=== PATIENT | male | born 2000 | race Caucasian/White ===

== ENCOUNTER 2022-01-18 18:46 | Inpatient (IN) ==
[2022-01-18] MEDS ORDERED: SODIUM CHLORIDE 0.9% 1000ML 2,000 ML IV ONE (19:14)
[2022-01-18 19:23] LABS: Appearance Urine Clear (Clear); Bacteria Urine Automated Negative (Negative); Bilirubin Urine Negative (Negative); Blood Urine 3+ (Negative); Cast Urine Automated 0 /lpf (0-5); Color Urine Orange; Epithelial Cell Urine Auto 0-5 /lpf (0-5); Glucose Urine UA Negative (Negative); Ketones Urine Negative (Negative); Leukocyte Esterase Urine Trace (Negative); Nitrite Urine Negative (Negative); Protein Urine 2+ (Negative); RBC Urine Automated 0-4 /hpf (0-4); Specific Gravity Urine 1.014 (1.000-1.030); Urobilinogen Urine Negative (Negative); pH Urine 6.5 (4.5-7.5)
[2022-01-18 19:39] LABS: Basophils # (auto) 0.02 K/uL (0-0.2); Basophils % (auto) 0.2 %; Eosinophils # (auto) 0.12 K/uL (0-0.50); Eosinophils % (auto) 1.4 %; Hematocrit (blood only) 50.3 % (40.1-51.0); Hemoglobin 16.9 g/dl (14.0-18.0); Immature Granulocytes # (auto) 0.02 K/uL (0.00-0.02); Immature Granulocytes % (auto) 0.2 %; Lymphocytes # (auto) 3.07 K/uL (1.2-3.4); Lymphocytes % (auto) 35.8 %; Mean Corpuscular Hemoglobin 28.2 pg (25.0-34.0); Mean Corpuscular Hgb Conc 33.6 g/dL (32.0-36.0); Mean Corpuscular Volume 83.8 fL (80.0-100.0); Mean Platelet Volume 10.4 fL (9.4-12.4); Monocytes # (auto) 0.58 K/uL (0.24-0.82); Monocytes % (auto) 6.8 %; Neutrophils # (auto) 4.76 K/uL (1.4-6.5); Neutrophils % (auto) 55.6 %; Platelet Count 274 K/uL (130-400); RDW Coefficient of Variation 12.8 % (11.5-14.5); RDW Standard Deviation 38.6 fL (36.4-46.3); White Blood Count 8.57 K/ul (4.8-10.8)
--- NOTE | 2022-01-18 19:42 | Emergency Department Note ---
Impression & Plan Rhabdomyolysis, Transaminitis, Hepatic steatosis ED Provider Note NAME: SHADIA HERRERA AGE: 21 SEX: M : 2000 ARRIVES VIA: Walk-In INFORMANT: Patient ED PROVIDER(S): Jalen Roman DO CHIEF COMPLAINT: dark urine, leg and back pain HPI: Patient is a 21-year-old male who presents to the ER for dark urine. He notes he worked out very hard on Wednesday and did way more than what he normally does. Since then he has been very sore in the legs. Yesterday he did start to have some left lower back pain as well. He has no pain at this time in the back but the legs are worse when he sits for a while or when he stands for a while. He notes the urine has slightly cleared up. No headache or change in vision. No chest pain or shortness of breath. No nausea, vomiting, or diarrhea. No dysuria, urgency, or frequency. No other exacerbating or remitting factors. He also notes he has not been urinating as much as usual. ROS: See above HPI for pertinent positives & negatives. A total of 10 systems reviewed and were otherwise negative. PAST MEDICAL HISTORY:See Below PAST SURGICAL HISTORY:See Below FAMILY HISTORY:See Below SOCIAL HISTORY:See Below HOME MEDICATIONS:See Below ALLERGIES:See Below VITALS:See Below PHYSICAL EXAMINATION: GENERAL: Sitting up in bed, alert, well appearing, well nourished, no distress, non-toxic EYE EXAM: normal conjunctiva. OROPHARYNX: mucous membranes are moist LUNGS: Clear to auscultation. Normal chest wall mechanics HEART: no murmurs, S1 normal and S2 normal ABDOMEN: abdomen soft, non-tender, normo-active bowel sounds, no masses, no rebound or guarding. BACK: Back is symmetrical on inspection and there is no deformity, no midline tenderness, no CVA tenderness. SKIN: no rashes and no bruising UPPER EXTREMITIES: upper extremities are grossly normal. LOWER EXTREMITIES: No pitting edema. NEURO EXAM: Normal sensorium, cranial nerves II-XII grossly intact, normal speech, no gross weakness of arms, no gross weakness of legs. MEDICAL DECISION MAKING: Patient is a 21-year-old male who presents ER for dark urine and bilateral leg pain after working out weight harder than what he typically does this past Wednesday. IV was established blood work is obtained. Labs show no significant leukocytosis or anemia. BMP was unremarkable. T bili up at 1.3 with an AST of 1114 and ALT of 281. Total CK was 45,000. Lipase was normal. UA with blood and protein. COVID was negative. Patient was given 2 L normal saline as well as 2 additional liters of Normosol. He was updated at bedside. CT abdomen pelvis was unremarkable. He was discussed with Dr. Lynne Drummond and admitted for further work-up. Triage Nursing notes reviewed. Limited review of prior medical records performed Vital Signs: reviewed and remarkable for HTN and tachy Differential diagnosis: Differential diagnoses includes but is not limited to gastritis, peptic ulcer disease, GERD, gallbladder disease, pancreatitis, small bowel obstruction, acute coronary syndrome, pericarditis, ischemic bowel, irritable bowel disease, irritable bowel syndrome, appendicitis, diverticulitis, malignancy, hernia, urinary tract infection, torsion, perforation, trauma, infectious. ER treatment provided: See below Diagnostics interpreted by me: ECG: none Cardiac Monitoring: An order was placed for continuous cardiac monitoring. The monitor shows a rate of 90 with sinus rhythm. Laboratory studies: As stated above and show below. Imaging studies: CT abdomen pelvis was unremarkable Consultation(s): Discussed with Dr. Lynne Drummond for further evaluation Procedures: none Critical Care: None Past Med/Surg History Medical History (Updated 01/18/22 @ 22:07 by Dee Drummond DO) No significant past medical history Surgical History (Updated 01/18/22 @ 22:05 by Dee Drummond DO) No significant past surgical history Family History (Updated 01/18/22 @ 22:05 by Dee Drummond DO) Other Diabetes Social History (Updated 01/18/22 @ 22:05 by Dee Drummond DO) Smoking Status: Never smoker Hx Alcohol Use: No Hx Substance Use: No Feels Safe at Home: Yes Allergies Allergies Allergy/AdvReac Type Severity Reaction Status Date / Time No Known Allergies Allergy Unverified 01/18/22 22:04 Home Meds Home Medications Medication Instructions Recorded Confirmed No Known Home Medications 01/18/22 01/18/22 Results & Data (ED) Vital Signs Vital Signs - 24 hr 01/18/22 18:50 01/18/22 20:41 Temperature 36.5 C Temperature Source Temporal Artery Scan Pulse Rate 98 H Respiratory Rate 20 Respiratory Effort / Characteristics Non-Labored Spontaneous Respiratory Depth Normal Respiratory Pattern Regular Blood Pressure 149/108 H Blood Pressure [Right Arm] 135/78 Blood Pressure Mean 121 Blood Pressure Mean [Right Arm] 97 Pulse Oximetry 97 Oxygen Delivery Method Room Air Sepsis Recent Fever Within 48 Hours No Sepsis New/Unexplained Change in Mental Status No Sepsis Action Taken by Nursing No Action Required Laboratory Data Result diagrams: 01/18/22 19:08 01/18/22 19:08 Lab Results 01/18/22 01/18/22 01/18/22 Range/Units 19:07 19:08 19:08 WBC 8.57 (4.8-10.8) K/ul RBC 6.00 (4.63-6.08) M/uL Hgb 16.9 (14.0-18.0) g/dl Hct 50.3 (40.1-51.0) % MCV 83.8 (80.0-100.0) fL MCH 28.2 (25.0-34.0) pg MCHC 33.6 (32.0-36.0) g/dL RDW Std Deviation 38.6 (36.4-46.3) fL RDW Coeff of Rigoberto 12.8 (11.5-14.5) % Plt Count 274 (130-400) K/uL MPV 10.4 (9.4-12.4) fL Immature Gran % (Auto) 0.2 % Neut % (Auto) 55.6 % Lymph % (Auto) 35.8 % [place] % (Auto) 6.8 % Eos % (Auto) 1.4 % Baso % (Auto) 0.2 % Neut # (Auto) 4.76 (1.4-6.5) K/uL Lymph # (Auto) 3.07 (1.2-3.4) K/uL [place] # (Auto) 0.58 (0.24-0.82) K/uL Eos # (Auto) 0.12 (0-0.50) K/uL Baso # (Auto) 0.02 (0-0.2) K/uL Immature Gran # (Auto) 0.02 (0.00-0.02) K/uL Sodium 140 (136-145) mmol/L Potassium 3.9 (3.5-5.1) mmol/L Chloride 102 (98-107) mmol/L Carbon Dioxide 32 (21-32) mmol/L Anion Gap 6 (3-11) BUN 12 (6-23) mg/dl Creatinine 1.20 (0.6-1.4) mg/dl Est Cr Clr Drug Dosing 100.3 ml/min Est GFR ( Amer) 99.6 ml/min Est GFR (Non-Af Amer) 85.9 ml/min BUN/Creatinine Ratio 10.0 (10-20) Glucose 106 H (70-99(Fasting)) mg/dl Calcium 9.8 (8.5-10.1) mg/dl Total Bilirubin 1.3 H (0.2-1.0) mg/dl AST 1392 H (13-39) U/L ALT 281 H (7-52) U/L Alkaline Phosphatase 55 (34-104) U/L Total Creatine Kinase 63242 H (30-223) U/L Total Protein 8.3 (6.0-8.3) gm/dl Albumin 4.9 (3.4-5.0) gm/dl Globulin 3.4 (2.5-4.0) gm/dl Albumin/Globulin Ratio 1.4 (0.9-2) Lipase 22 (11-82) U/L Urine Color [place] Urine Appearance Clear (Clear) Urine pH 6.5 (4.5-7.5) Ur Specific [place] 1.014 (1.000-1.030) Urine Protein 2+ H (Negative) Urine Glucose (UA) Negative (Negative) Urine Ketones Negative (Negative) Urine Blood 3+ H (Negative) Urine Nitrite Negative (Negative) Urine Bilirubin Negative (Negative) Urine Urobilinogen Negative (Negative) Ur Leukocyte Esterase Trace H (Negative) Urine WBC (Auto) 1-5 (0-5) /hpf Urine RBC (Auto) 0-4 (0-4) /hpf U Hyaline Cast (Auto) 0 (0-5) /lpf U Epithel Cells (Auto) 0-5 (0-5) /lpf Urine Bacteria (Auto) Negative (Negative) SARS-CoV-2, RNA, NAAT (NEGATIVE) 01/18/22 Range/Units 21:36 WBC (4.8-10.8) K/ul RBC (4.63-6.08) M/uL Hgb (14.0-18.0) g/dl Hct (40.1-51.0) % MCV (80.0-100.0) fL MCH (25.0-34.0) pg MCHC (32.0-36.0) g/dL RDW Std Deviation (36.4-46.3) fL RDW Coeff of Rigoberto (11.5-14.5) % Plt Count (130-400) K/uL MPV (9.4-12.4) fL Immature Gran % (Auto) % Neut % (Auto) % Lymph % (Auto) % [place] % (Auto) % Eos % (Auto) % Baso % (Auto) % Neut # (Auto) (1.4-6.5) K/uL Lymph # (Auto) (1.2-3.4) K/uL [place] # (Auto) (0.24-0.82) K/uL Eos # (Auto) (0-0.50) K/uL Baso # (Auto) (0-0.2) K/uL Immature Gran # (Auto) (0.00-0.02) K/uL Sodium (136-145) mmol/L Potassium (3.5-5.1) mmol/L Chloride (98-107) mmol/L Carbon Dioxide (21-32) mmol/L Anion Gap (3-11) BUN (6-23) mg/dl Creatinine (0.6-1.4) mg/dl Est Cr Clr Drug Dosing ml/min Est GFR ( Amer) ml/min Est GFR (Non-Af Amer) ml/min BUN/Creatinine Ratio (10-20) Glucose (70-99(Fasting)) mg/dl Calcium (8.5-10.1) mg/dl Total Bilirubin (0.2-1.0) mg/dl AST (13-39) U/L ALT (7-52) U/L Alkaline Phosphatase (34-104) U/L Total Creatine Kinase (30-223) U/L Total Protein (6.0-8.3) gm/dl Albumin (3.4-5.0) gm/dl Globulin (2.5-4.0) gm/dl Albumin/Globulin Ratio (0.9-2) Lipase (11-82) U/L Urine Color Urine Appearance (Clear) Urine pH (4.5-7.5) Ur Specific [place] (1.000-1.030) Urine Protein (Negative) Urine Glucose (UA) (Negative) Urine Ketones (Negative) Urine Blood (Negative) Urine Nitrite (Negative) Urine Bilirubin (Negative) Urine Urobilinogen (Negative) Ur Leukocyte Esterase (Negative) Urine WBC (Auto) (0-5) /hpf Urine RBC (Auto) (0-4) /hpf U Hyaline Cast (Auto) (0-5) /lpf U Epithel Cells (Auto) (0-5) /lpf Urine Bacteria (Auto) (Negative) SARS-CoV-2, RNA, NAAT NEGATIVE (NEGATIVE) Administered Medications Discontinued Medications Sodium Chloride (Nss 1000ml) 2,000 mls @ 999 mls/hr IV .Q2H1M ONE Stop: 01/18/22 21:14 Last Infusion: 01/18/22 21:24 Dose: 0 mls/hr Documented By: Admin: 01/18/22 19:32 Dose: 999 mls/hr Documented By: SENDY Parenteral Electrolytes (Normosol-R) 1,000 mls @ 999 mls/hr IV .Q1H1M ONE Stop: 01/18/22 21:38 Last Admin: 01/18/22 21:23 Dose: 999 mls/hr Documented By: SENDY Imaging Data Radiologist's Impression: Abdomen/Pelvis CT 01/18/22 19:26 CT SCAN OF THE ABDOMEN AND PELVIS WITHOUT IV CONTRAST CLINICAL HISTORY: Left flank pain. COMPARISON STUDY: No priors. TECHNIQUE: CT scan of the abdomen and pelvis is performed from the lung bases to the proximal femora. Images are reviewed in the axial, sagittal, and coronal planes. IV contrast was not administered for this examination. A dose lowering technique was utilized adhering to the principles of ALARA. CT DOSE: 382.18 mGy.cm FINDINGS: Lung bases: The heart is normal in size and without pericardial effusion. The lung bases are clear. Liver: The unenhanced liver is normal in size and demonstrates diffusely diminished attenuation indicating steatosis. Fatty sparing is seen adjacent to the gallbladder fossa. There is no intrahepatic biliary ductal dilatation. Gallbladder: Unremarkable. Spleen: Normal in size and attenuation. Pancreas: Unremarkable. Adrenal glands: Unremarkable. Kidneys: The unenhanced kidneys are normal in size and without hydronephrosis. There are no renal calculi identified. There is no evidence of contour deforming renal mass lesion. Abdominal vasculature: The abdominal aorta is normal in course and caliber. Bowel: There is mild to moderate colonic fecal retention. No bowel obstruction is seen. The appendix is well-visualized and normal. Peritoneum: There is no intraperitoneal free air or abdominal ascites. Lymphadenopathy: None. Pelvic viscera: The bladder, prostate, and seminal vesicles are normal as visualized. Skeletal structures: No lytic or blastic lesions are seen. IMPRESSION: 1. No acute infectious or inflammatory findings are identified in the abdomen or pelvis. 2. Hepatic steatosis. ACT 112: Negative or not required by law. Electronically signed by: Mekhi Cisneros M.D. 01/18/2022 8:25 PM Discharge Plan Visit Data Chief Complaint: Urinary Symptoms Stated Complaint: DARK URINE, LOWER BACK/KINDEY PAIN ED Provider: Jalen Roman Discharge Problem: Rhabdomyolysis, Transaminitis, Hepatic steatosis Forms Stand Alone Forms: My [employer] Prescriptions Prescriptions: No Action No Known Home Medications Referrals Referrals: PCP,NO [Primary Care Provider] -
[2022-01-18 20:05] LABS: Calcium 9.8 mg/dl (8.5-10.1); Creatinine Clr Calc Pharmacy 100.3 ml/min; Est GFR (African American) 99.6 ml/min; Est GFR (Non-African American) 85.9 ml/min; Potassium 3.9 mmol/L (3.5-5.1)
--- NOTE | 2022-01-18 20:27 | CT Scan Report ---
CT SCAN OF THE ABDOMEN AND PELVIS WITHOUT IV CONTRAST CLINICAL HISTORY: Left flank pain. COMPARISON STUDY: No priors. TECHNIQUE: CT scan of the abdomen and pelvis is performed from the lung bases to the proximal femora. Images are reviewed in the axial, sagittal, and coronal planes. IV contrast was not administered for this examination. A dose lowering technique was utilized adhering to the principles of ALARA. CT DOSE: 382.18 mGy.cm FINDINGS: Lung bases: The heart is normal in size and without pericardial effusion. The lung bases are clear. Liver: The unenhanced liver is normal in size and demonstrates diffusely diminished attenuation indic ating steatosis. Fatty sparing is seen adjacent to the gallbladder fossa. There is no intrahepatic bi liary ductal dilatation. Gallbladder: Unremarkable. Spleen: Normal in size and attenuation. Pancreas: Unremarkable. Adrenal glands: Unremarkable. Kidneys: The unenhanced kidneys are normal in size and without hydronephrosis. There are no renal moe culi identified. There is no evidence of contour deforming renal mass lesion. Abdominal vasculature: The abdominal aorta is normal in course and caliber. Bowel: There is mild to moderate colonic fecal retention. No bowel obstruction is seen. The appendix is well-visualized and normal. Peritoneum: There is no intraperitoneal free air or abdominal ascites. Lymphadenopathy: None. Pelvic viscera: The bladder, prostate, and seminal vesicles are normal as visualized. Skeletal structures: No lytic or blastic lesions are seen. IMPRESSION: 1. No acute infectious or inflammatory findings are identified in the abdomen or pelvis. 2. Hepatic steatosis. ACT 112: Negative or not required by law. Electronically signed by: Mekhi Cisneros M.D. 01/18/2022 8:25 PM
[2022-01-18 20:28] LABS: Albumin Globulin Ratio 1.4 (0.9-2); Albumin Level 4.9 gm/dl (3.4-5.0); Bilirubin,Total 1.3 mg/dl (0.2-1.0); Globulin 3.4 gm/dl (2.5-4.0); Total Protein 8.3 gm/dl (6.0-8.3)
[2022-01-18] MEDS ORDERED: NORMOSOL-R 1,000 ML IV ONE ×2 (20:38→22:12)
--- NOTE | 2022-01-18 21:21 | History & Physical Report ---
Date of Service January 18, 2022 Assessment & Plan (1) Rhabdomyolysis: Plan: 21yo male with no significant past medical or surgical history presenting with exertional rhabdomyolysis. Patient reports doing a strenuous leg workout two days ago. He has had muscle soreness then dark urine today. He is afebrile, HD stable. No evidence of compartment syndrome [place] exam[place] [address], ZGA=6198 and CIT=017, could be consistent with patient's rhabdomyolysis. Renal function is intact -Admit to medical -Check Mg and PO4 x 1 -Continue IVF resuscitation - LR at 150mL/hr x 3 liters -Repeat chemistry, CBC, LFTs and CK in AM -Tylenol as needed for pain (2) Hepatic steatosis: Plan: Noted on imaging -Repeat LFTs in AM -Will send HgbA1C and Lipid panel to help optimize risk factors for NAFLD -Briefly discussed lifestyle modification - encouraged patient to continue exercising, eating healthy. He does not smoke or drink. F/E/N - LR at 150mL/hr, monitor electrolytes, regular diet Ppx - Low risk for DVT Code - Full Dispo - Admit to medical History of Present Illness Chief Complaint: rhabdomyolysis Primary Care Provider: NO PCP Grayson Savage is a pleasant 21yo male with no significant past medical or surgical history presenting with acute exertional rhabdomyolysis. Patient was working out in his home two days ago. He did a lot of leg lifts and squats. Yesterday he had muscle pain in his anterior and lateral thighs. Today he noted some dark urine. He tried to drink a lot of fluid to lighten his urine but continue to pass dark colored urine which is why he came to the ER. He has no additional complaints. Denies chest pain, cough, SOB, fever, chills, nausea, vomiting, diarrhea or constipation. He takes no medications or over the counter supplements. No prior history of rhabdomyolysis. In the ER patient is afebrile, HD stable, NAD. ER Course: 2L NSS, 1L Plasmalyte Allergies Allergy/AdvReac Type Severity Reaction Status Date / Time No Known Allergies Allergy Unverified 01/18/22 22:04 Home Medications Medication Instructions Recorded Confirmed Type No Known Home Medications 01/18/22 01/18/22 History Past Med/Surg History Medical History (Updated 01/18/22 @ 22:07 by Dee Drummond DO) No significant past medical history Surgical History (Updated 01/18/22 @ 22:05 by Dee Drummond DO) No significant past surgical history Family History (Updated 01/18/22 @ 22:05 by Dee Drummond DO) Other Diabetes Social History (Updated 01/18/22 @ 22:05 by Dee Drummond DO) Smoking Status: Never smoker Hx Alcohol Use: No Hx Substance Use: No Feels Safe at Home: Yes Review of Systems Review of Systems: All systems reviewed & are unremarkable except as noted in HPI & below Physical Exam Physical Exam: General: patient resting comfortably, NAD, non-toxic in appearance, AA&O x 4 Skin: warm, dry, intact, no rashes or lesions HEENT: NC/AT, PERRL, EOMI, anicteric sclera, conjunctiva without injection, external ear normal to inspection and nontender, nares patent, moist mucus membranes, dentition intact, no oropharyngeal lesions, neck supple, trachea midline, no LAD, no thyromegaly, no JVD Heart: +S1/S2, regular, no m/r/g Lungs: equal air entry bilaterally, no rales/rhonchi/wheezes Abd: +BS, soft, NT/ND, no masses/organomegaly/ascites Ext: warm, 2+ pulses in UE/LE bilaterally, no clubbing/cyanosis or edema, muscle compartments are soft, tender to palpation Neuro: nonfocal, patient AA&O x 4, speech intact, no facial droop, moving all extremities on command with equal strength 5/5 Results & Data Results & Data ([facility]) Vital Signs (Past 12 Hours) Vital Signs Temp Pulse Resp BP BP Pulse Ox O2 Del Method 01/18/22 20:41 135/78 01/18/22 18:50 36.5 C 98 H 20 149/108 H 97 Room Air Laboratory Results Laboratory Results WBC 8.57 K/ul (4.8-10.8) 01/18/22 19:08 RBC 6.00 M/uL (4.63-6.08) 01/18/22 19:08 Hgb 16.9 g/dl (14.0-18.0) 01/18/22 19:08 Hct 50.3 % (40.1-51.0) 01/18/22 19:08 MCV 83.8 fL (80.0-100.0) 01/18/22 19:08 MCH 28.2 pg (25.0-34.0) 01/18/22 19:08 MCHC 33.6 g/dL (32.0-36.0) 01/18/22 19:08 RDW Std Deviation 38.6 fL (36.4-46.3) 01/18/22 19:08 RDW Coeff of Rigoberto 12.8 % (11.5-14.5) 01/18/22 19:08 Plt Count 274 K/uL (130-400) 01/18/22 19:08 MPV 10.4 fL (9.4-12.4) 01/18/22 19:08 Immature Gran % (Auto) 0.2 % 01/18/22 19:08 Neut % (Auto) 55.6 % 01/18/22 19:08 Lymph % (Auto) 35.8 % 01/18/22 19:08 [place] % (Auto) 6.8 % 01/18/22 19:08 Eos % (Auto) 1.4 % 01/18/22 19:08 Baso % (Auto) 0.2 % 01/18/22 19:08 Neut # (Auto) 4.76 K/uL (1.4-6.5) 01/18/22 19:08 Lymph # (Auto) 3.07 K/uL (1.2-3.4) 01/18/22 19:08 [place] # (Auto) 0.58 K/uL (0.24-0.82) 01/18/22 19:08 Eos # (Auto) 0.12 K/uL (0-0.50) 01/18/22 19:08 Baso # (Auto) 0.02 K/uL (0-0.2) 01/18/22 19:08 Immature Gran # (Auto) 0.02 K/uL (0.00-0.02) 01/18/22 19:08 Sodium 140 mmol/L (136-145) 01/18/22 19:08 Potassium 3.9 mmol/L (3.5-5.1) 01/18/22 19:08 Chloride 102 mmol/L (98-107) 01/18/22 19:08 Carbon Dioxide 32 mmol/L (21-32) 01/18/22 19:08 Anion Gap 6 (3-11) 01/18/22 19:08 BUN 12 mg/dl (6-23) 01/18/22 19:08 Creatinine 1.20 mg/dl (0.6-1.4) 01/18/22 19:08 Est Cr Clr Drug Dosing 100.3 ml/min 01/18/22 19:08 Est GFR ( Amer) 99.6 ml/min 01/18/22 19:08 Est GFR (Non-Af Amer) 85.9 ml/min 01/18/22 19:08 BUN/Creatinine Ratio 10.0 (10-20) 01/18/22 19:08 Glucose 106 mg/dl (70-99(Fasting)) H 01/18/22 19:08 Calcium 9.8 mg/dl (8.5-10.1) 01/18/22 19:08 Total Bilirubin 1.3 mg/dl (0.2-1.0) H 01/18/22 19:08 AST 1392 U/L (13-39) H 01/18/22 19:08 ALT 281 U/L (7-52) H 01/18/22 19:08 Alkaline Phosphatase 55 U/L (34-104) 01/18/22 19:08 Total Creatine Kinase 04566 U/L (30-223) H 01/18/22 19:08 Total Protein 8.3 gm/dl (6.0-8.3) 01/18/22 19:08 Albumin 4.9 gm/dl (3.4-5.0) 01/18/22 19:08 Globulin 3.4 gm/dl (2.5-4.0) 01/18/22 19:08 Albumin/Globulin Ratio 1.4 (0.9-2) 01/18/22 19:08 Lipase 22 U/L (11-82) 01/18/22 19:08 Urine Color Hand 01/18/22 19:07 Urine Appearance Clear (Clear) 01/18/22 19:07 Urine pH 6.5 (4.5-7.5) 01/18/22 19:07 Ur Specific [place] 1.014 (1.000-1.030) 01/18/22 19:07 Urine Protein 2+ (Negative) H 01/18/22 19:07 Urine Glucose (UA) Negative (Negative) 01/18/22 19:07 Urine Ketones Negative (Negative) 01/18/22 19:07 Urine Blood 3+ (Negative) H 01/18/22 19:07 Urine Nitrite Negative (Negative) 01/18/22 19:07 Urine Bilirubin Negative (Negative) 01/18/22 19:07 Urine Urobilinogen Negative (Negative) 01/18/22 19:07 Ur Leukocyte Esterase Trace (Negative) H 01/18/22 19:07 Urine WBC (Auto) 1-5 /hpf (0-5) 01/18/22 19:07 Urine RBC (Auto) 0-4 /hpf (0-4) 01/18/22 19:07 U Hyaline Cast (Auto) 0 /lpf (0-5) 01/18/22 19:07 U Epithel Cells (Auto) 0-5 /lpf (0-5) 01/18/22 19:07 Urine Bacteria (Auto) Negative (Negative) 01/18/22 19:07 SARS-CoV-2, RNA, NAAT NEGATIVE (NEGATIVE) 01/18/22 21:36 Impressions Abdomen/Pelvis CT 01/18/22 19:26 CT SCAN OF THE ABDOMEN AND PELVIS WITHOUT IV CONTRAST CLINICAL HISTORY: Left flank pain. COMPARISON STUDY: No priors. TECHNIQUE: CT scan of the abdomen and pelvis is performed from the lung bases to the proximal femora. Images are reviewed in the axial, sagittal, and coronal planes. IV contrast was not administered for this examination. A dose lowering technique was utilized adhering to the principles of ALARA. CT DOSE: 382.18 mGy.cm FINDINGS: Lung bases: The heart is normal in size and without pericardial effusion. The lung bases are clear. Liver: The unenhanced liver is normal in size and demonstrates diffusely diminished attenuation indicating steatosis. Fatty sparing is seen adjacent to the gallbladder fossa. There is no intrahepatic biliary ductal dilatation. Gallbladder: Unremarkable. Spleen: Normal in size and attenuation. Pancreas: Unremarkable. Adrenal glands: Unremarkable. Kidneys: The unenhanced kidneys are normal in size and without hydronephrosis. There are no renal calculi identified. There is no evidence of contour deforming renal mass lesion. Abdominal vasculature: The abdominal aorta is normal in course and caliber. Bowel: There is mild to moderate colonic fecal retention. No bowel obstruction is seen. The appendix is well-visualized and normal. Peritoneum: There is no intraperitoneal free air or abdominal ascites. Lymphadenopathy: None. Pelvic viscera: The bladder, prostate, and seminal vesicles are normal as visualized. Skeletal structures: No lytic or blastic lesions are seen. IMPRESSION: 1. No acute infectious or inflammatory findings are identified in the abdomen or pelvis. 2. Hepatic steatosis. ACT 112: Negative or not required by law. Electronically signed by: Mekhi Cisneros M.D. 01/18/2022 8:25 PM PG Care Time/CCT Total # of Minutes Spent Total Time Spent with Patient: Total time spent is greater than 50% in coordination of care (as documented) at patient's floor/unit and/or counseling patient: Coding Level of Care Code 42323 Initial Inpt Care Lvl 2 Diagnoses Rhabdomyolysis M62.82 Hepatic steatosis K76.0
[2022-01-18] MEDS ORDERED: ACETAMINOPHEN 325 MG TAB PO PRN (22:44)
[2022-01-18 23:03] LABS: Magnesium 2.4 mg/dl (1.7-2.4); Phosphorus 3.5 mg/dl (2.5-4.9)
[2022-01-19] MEDS: LACTATED RINGER'S 1,000 ML IV SCH ×3 (00:15→12:26)
[2022-01-19 06:20] LABS: Hematocrit (blood only) 44.7 % (40.1-51.0); Hemoglobin 15.2 g/dl (14.0-18.0); Mean Corpuscular Hemoglobin 28.5 pg (25.0-34.0); Mean Corpuscular Volume 83.9 fL (80.0-100.0); Mean Platelet Volume 10.4 fL (9.4-12.4); Platelet Count 232 K/uL (130-400); RDW Coefficient of Variation 13.1 % (11.5-14.5); RDW Standard Deviation 39.8 fL (36.4-46.3); Red Blood Count 5.33 M/uL (4.63-6.08); White Blood Count 7.28 K/ul (4.8-10.8)
[2022-01-19 06:46] LABS: BUN Creatinine Ratio 8.8 (10-20); Calcium 9.1 mg/dl (8.5-10.1); Creatinine Clr Calc Pharmacy 133.2 ml/min; Est GFR (African American) 139.1 ml/min; Potassium 4.3 mmol/L (3.5-5.1)
[2022-01-19 06:48] LABS: Albumin Level 4.1 gm/dl (3.4-5.0); Chol HDL Ratio 3.3 (0-5); Total Protein 6.7 gm/dl (6.0-8.3)
[2022-01-19 07:05] LABS: Bilirubin Direct 0.2 mg/dl (0-0.2); Bilirubin,Total 1.7 mg/dl (0.2-1.0)
[2022-01-19 07:32] LABS: Estimated Average Glucose 111 mg/dl; Hemoglobin A1C 5.5 % (4.5-5.6)
[2022-01-19] MEDS ORDERED: FLUARIX QUADRIVALENT 0.5 ML SYR IM ONE (09:00)
--- NOTE | 2022-01-19 14:22 | Discharge Summary ---
Date of Service January 19, 2022 Admission HPI Per Admitting Provider Grayson Savage is a pleasant 21yo male with no significant past medical or surgical history presenting with acute exertional rhabdomyolysis. Patient was working out in his home two days ago. He did a lot of leg lifts and squats. Yesterday he had muscle pain in his anterior and lateral thighs. Today he noted some dark urine. He tried to drink a lot of fluid to lighten his urine but continue to pass dark colored urine which is why he came to the ER. He has no additional complaints. Denies chest pain, cough, SOB, fever, chills, nausea, vomiting, diarrhea or constipation. He takes no medications or over the counter supplements. No prior history of rhabdomyolysis. In the ER patient is afebrile, HD stable, NAD. ER Course: 2L NSS, 1L Plasmalyte Admission Exam Per Admitting Provider General: patient resting comfortably, NAD, non-toxic in appearance, AA&O x 4 Skin: warm, dry, intact, no rashes or lesions HEENT: NC/AT, PERRL, EOMI, anicteric sclera, conjunctiva without injection, external ear normal to inspection and nontender, nares patent, moist mucus membranes, dentition intact, no oropharyngeal lesions, neck supple, trachea midline, no LAD, no thyromegaly, no JVD Heart: +S1/S2, regular, no m/r/g Lungs: equal air entry bilaterally, no rales/rhonchi/wheezes Abd: +BS, soft, NT/ND, no masses/organomegaly/ascites Ext: warm, 2+ pulses in UE/LE bilaterally, no clubbing/cyanosis or edema, muscle compartments are soft, tender to palpation Neuro: nonfocal, patient AA&O x 4, speech intact, no facial droop, moving all extremities on command with equal strength 5/5 Principal Diagnosis Rhabdomyolysis Discharge Exam General: WN/WD male resting in bed upon entry, NAD HEENT; head normocephalic, atraumatic, mmm, trachea midline without deviation Resp CTAB, no w/c/r, on room air 96% CV RRR, no m/r/g, no pitting edema/calf tenderness GI: +BS, soft, nontender : no buchanan MSK/Neuro: moves all extremities, no focal deficits, muscle compartments of thighs (prior reported tenderness) SOFT, NONTENDER Skin: warm, dry Psych: AOX3, pleasant and cooperative Discharge Data Allergies Allergy/AdvReac Type Severity Reaction Status Date / Time No Known Allergies Allergy Unverified 01/18/22 22:04 Consultations 01/18/22 20:38 ED Decision to Admit Stat Ordered Studies Abdomen/Pelvis CT 01/18/22 19:26 CT SCAN OF THE ABDOMEN AND PELVIS WITHOUT IV CONTRAST CLINICAL HISTORY: Left flank pain. COMPARISON STUDY: No priors. TECHNIQUE: CT scan of the abdomen and pelvis is performed from the lung bases to the proximal femora. Images are reviewed in the axial, sagittal, and coronal planes. IV contrast was not administered for this examination. A dose lowering technique was utilized adhering to the principles of ALARA. CT DOSE: 382.18 mGy.cm FINDINGS: Lung bases: The heart is normal in size and without pericardial effusion. The lung bases are clear. Liver: The unenhanced liver is normal in size and demonstrates diffusely diminished attenuation indicating steatosis. Fatty sparing is seen adjacent to the gallbladder fossa. There is no intrahepatic biliary ductal dilatation. Gallbladder: Unremarkable. Spleen: Normal in size and attenuation. Pancreas: Unremarkable. Adrenal glands: Unremarkable. Kidneys: The unenhanced kidneys are normal in size and without hydronephrosis. There are no renal calculi identified. There is no evidence of contour deforming renal mass lesion. Abdominal vasculature: The abdominal aorta is normal in course and caliber. Bowel: There is mild to moderate colonic fecal retention. No bowel obstruction is seen. The appendix is well-visualized and normal. Peritoneum: There is no intraperitoneal free air or abdominal ascites. Lymphadenopathy: None. Pelvic viscera: The bladder, prostate, and seminal vesicles are normal as visualized. Skeletal structures: No lytic or blastic lesions are seen. IMPRESSION: 1. No acute infectious or inflammatory findings are identified in the abdomen or pelvis. 2. Hepatic steatosis. ACT 112: Negative or not required by law. Electronically signed by: Mekhi Cisneros M.D. 01/18/2022 8:25 PM Hospital Course (1) Rhabdomyolysis: 21yo male with no significant past medical or surgical history presenting with exertional rhabdomyolysis. Patient reports doing a strenuous leg workout two days ago. He has had muscle soreness then dark urine today. UA w/ 3+ blood, NO RBC He is afebrile, HD stable. No evidence of compartment syndrome on exam. CTAP on admit for R flank pain (reported thigh pain to myself, likely from rhabdo) -- negative for acute infectious/inflammatory finding. did note hepatic steatosis [employer] [place], [place] [address] on admit with LFTs AST 1392/ALT 281 IVF ordered, continued and increased to 200cc/hr for CK 77k on repeat however may not have peaked yet AST/ALT improved on repeat Patient had prior reports of thigh tightness/darkened urine Reporting urine actually looking the best it has even prior to current episode/clear, able to tolerate diet without issue Pain control prn Discussed continued IVF through the afternoon and repeat labs with [facility] later this week to ensure improving as patient wanting to go home today. (2) Hepatic steatosis: Noted on imaging, ?NAFLD, denies smoking/drinking LFTs improving A1c w/o elevation f/u outpatient with PCP Briefly discussed lifestyle modification - encouraged patient to continue exercising, eating healthy Plan discharge home Total Time Total Time Spent Total Time Spent (In Minutes): 40 Discharge Plan Discharge Items Patient Disposition: Home - Self-Care Reason For Visit: RHADOMYOLYSIS Discharge Diagnosis: Rhabdomyolysis Goals: You have been hospitalized for an acute medical problem. During your stay at [facility], we have made an effort to correct the problem that brought you to the hospital while keeping you as comfortable as possible. Medications were used to bring your condition under control and your discharge instructions will include directions for any medications you should take after leaving the hospital. Please make sure you see your Primary Care Provider as part of your follow up plan. Activity: As commented below Lifting Comment: NO HEAVY LIFTING/EXERCISE Non-emergency contact: Primary Care Provider Call non-emergency contact if: you have any medication questions, your symptoms worsen and your pain is not controlled Follow-up/Referrals: [facility] [Outside] PCP,NO [Primary Care Provider] - Diet: Regular Ambulatory Orders: Creatine Kinase (Routine) Timeframe: 2 Days Location: Determined by Patient Ordered By: Tonja Teixeira Comprehensive Metabolic Panel (Routine) Timeframe: 2 Days Location: Determined by Patient Ordered By: Tonja Teixeira Addtl Attending Provider Instructions: You have been hospitalized for rhabdomyolysis (from muscle breakdown) from exercising. Your CK (muscle enzyme level) was further elevated on repeat labs but it may not have peaked. Your liver enzymes have improved on repeat. You have reported lightening of your urine, and provided additional IV fluids for hydration and treatment. You should continue to push oral fluids/Gatorade/electrolyte beverage at discharge and should AVOID any heavy lifting/exercise at discharge for at least a week and then can increase as tolerated. Your kidney function has been normal on repeat. You have been provided repeat labs to be drawn in two days to ensure your levels are improving. You should follow up with [facility] services/PCP in the next 7-10 days to monitor your progress. Please continue to keep up with oral hydration. Please return to the ER if you have any increased muscle pain, darkened urine, or for any other symptoms concerning for you. It has been a pleasure being a part of the medical team providing for you while you have been in the hospital. Take care! Pending Studies at Discharge: No Stand-Alone Forms: My [facility], Smoking Cessation Medications and DC Order Discharge Orders: Discharge Order (Routine); Ordered 01/19/22 Ordered By: Tonja Teixeira Admission Data Admit Date/Time: 01/18/22 21:21 Attending Provider: Bakari Pang Admit Provider: Dee Drummond Primary Care Provider: PCP,NO Other Providers: Dee Drummond Coding Level of Care Code D/C DAY MANAGEMENT >30 MINS Diagnoses Rhabdomyolysis M62.82 Hepatic steatosis K76.0
== END 2022-01-19 16:30 | disposition home or self-care (01) | DRG 558 ==
LOC: ED 18:46 → SUATTDRO 21:21 → 3N 21:21